=== PATIENT | female | born 1955 | race Caucasian/White ===

== ENCOUNTER 2017-04-28 13:32 | Emergency (ER) | payer OTHER ==
[~2017-04-28] VITALS: Ht 149.9 cm; Wt 73.2 kg
[2017-04-28 15:28] VITALS: BP 173/88
== END 2017-04-28 15:28 | disposition home or self-care (01) ==
LOC: ED 13:32
DX: S96.912A Strain of unspecified muscle and tendon at ankle and foot level, left foot, initial encounter (principal); L30.9 Dermatitis, unspecified; J44.9 Chronic obstructive pulmonary disease, unspecified; I10 Essential (primary) hypertension; E11.9 Type 2 diabetes mellitus without complications; E78.00 Pure hypercholesterolemia, unspecified; W18.39XA Other fall on same level, initial encounter; Y93.89 Activity, other specified; Y92.89 Other specified places as the place of occurrence of the external cause; Y99.8 Other external cause status
CPT/HCPCS: 82962

== ENCOUNTER 2019-03-06 14:32 | Emergency (ER) | payer OTHER ==
[~2019-03-06] VITALS: Ht 149.9 cm; Wt 66.7 kg
[2019-03-06 14:35] VITALS: Ht 149.9 cm; Wt 66.7 kg
[2019-03-06 16:47] VITALS: BP 188/76
== END 2019-03-06 16:47 | disposition home or self-care (01) ==
LOC: ED 14:32
DX: L03.115 Cellulitis of right lower limb (principal); I11.0 Hypertensive heart disease with heart failure; I50.9 Heart failure, unspecified; E11.9 Type 2 diabetes mellitus without complications; E78.00 Pure hypercholesterolemia, unspecified; J44.9 Chronic obstructive pulmonary disease, unspecified
CPT/HCPCS: 82962